=== PATIENT | female | born 1955 | race African-American/Black ===

== ENCOUNTER → 2018-08-20 | Outpatient (CLI) | payer MEDICARE, BC | LOC: MHCPAIN 12:55 | DX: G89.29 Other chronic pain (principal); M47.817 Spondylosis without myelopathy or radiculopathy, lumbosacral region; M54.16 Radiculopathy, lumbar region; M53.3 Sacrococcygeal disorders, not elsewhere classified; M96.1 Postlaminectomy syndrome, not elsewhere classified | CPT/HCPCS: G0463 ==

== ENCOUNTER → 2018-09-15 | Outpatient (CLI) | payer MEDICARE, BC | LOC: MHCPAIN 11:36 | DX: M47.817 Spondylosis without myelopathy or radiculopathy, lumbosacral region (principal); M54.16 Radiculopathy, lumbar region | CPT/HCPCS: J1100; Q9967 ==

== ENCOUNTER → 2018-09-30 | Outpatient (CLI) | payer MEDICARE, BC | LOC: MHCPAIN 10:24 | DX: G89.29 Other chronic pain (principal); M47.817 Spondylosis without myelopathy or radiculopathy, lumbosacral region; M54.16 Radiculopathy, lumbar region; M53.3 Sacrococcygeal disorders, not elsewhere classified; M96.1 Postlaminectomy syndrome, not elsewhere classified | CPT/HCPCS: G0463 ==

== ENCOUNTER → 2018-10-02 | Outpatient (CLI) | payer MEDICARE, BC | LOC: MHCPAIN 10:43 | DX: M47.817 Spondylosis without myelopathy or radiculopathy, lumbosacral region (principal); M54.16 Radiculopathy, lumbar region | CPT/HCPCS: J1100; Q9967 ==

== ENCOUNTER → 2018-11-04 | Outpatient (CLI) | payer MEDICARE, BC | LOC: MHCPAIN 13:22 | DX: G89.29 Other chronic pain (principal); M47.817 Spondylosis without myelopathy or radiculopathy, lumbosacral region; M54.16 Radiculopathy, lumbar region; M53.3 Sacrococcygeal disorders, not elsewhere classified | CPT/HCPCS: G0463 ==

== ENCOUNTER → 2020-03-22 | Outpatient (CLI) | payer MEDICARE, BC | LOC: MHCPAIN 09:10 | DX: M47.817 Spondylosis without myelopathy or radiculopathy, lumbosacral region (principal); M54.5 Low back pain; M96.1 Postlaminectomy syndrome, not elsewhere classified; G89.29 Other chronic pain; M54.16 Radiculopathy, lumbar region; M53.3 Sacrococcygeal disorders, not elsewhere classified | CPT/HCPCS: G0463 ==

== ENCOUNTER → 2020-03-31 | Outpatient (CLI) | payer MEDICARE, BC | LOC: MHCPAIN 08:59 | DX: M47.817 Spondylosis without myelopathy or radiculopathy, lumbosacral region (principal); M54.16 Radiculopathy, lumbar region; M53.3 Sacrococcygeal disorders, not elsewhere classified | CPT/HCPCS: J1100; Q9967 ==

== ENCOUNTER → 2020-04-19 | Outpatient (CLI) | payer MEDICARE, BC | LOC: MHCPAIN 09:53 | DX: M47.817 Spondylosis without myelopathy or radiculopathy, lumbosacral region (principal); M54.5 Low back pain; M53.3 Sacrococcygeal disorders, not elsewhere classified; M96.1 Postlaminectomy syndrome, not elsewhere classified | CPT/HCPCS: G0463 ==

== ENCOUNTER → 2020-04-28 | Outpatient (CLI) | payer MEDICARE, BC | LOC: MHCPAIN 08:49 | DX: M47.817 Spondylosis without myelopathy or radiculopathy, lumbosacral region (principal); M54.16 Radiculopathy, lumbar region | CPT/HCPCS: J1100; Q9967 ==

== ENCOUNTER → 2021-11-16 | Outpatient (CLI) | payer MEDICARE, BC ==
[~2021-11-16] VITALS: Ht 152.4 cm; Wt 78.9 kg
[2021-11-16] VITALS (9 sets, daily range): BP systolic 146–167; BP diastolic 67–92; PULSE 58–67; TEMP 97.4
[~2021-11-16] MED LIST: AIMOVIG AU70 MG/1 ML SQ; AMERGE 2.5MG T2.5 MG PO; ASPIRIN 81M81 MG/TA2 PO; ASTEPRO205.5 MCG/ NS; ATACAND4 MG PO; BUSPIRONE HCL7.5 MG PO; CRESTOR5 MG PO; DILAUDID 2MG TAB2 MG PO; EPIPEN 2-PAK1 MG/ML IM; FLEXERIL 1010 MG/TAB PO; GARLIC PO; GLUCOPHAGE500 MG/TAB PO; MIDAMOR 5MG TAB5 MG PO; NEURONTIN300 MG/CAP PO; NUCYNTA ER150 MG PO; OMEGA-31 SGL PO; SINGULAIR 110 MG/TAB PO; ZERVIATE1 EACH; ZYRTEC 10MG10 MG PO
--- NOTE | 2021-11-16 10:17 | NUR ---
Pt to ct per wheelchair. Monitor applied to pt. Denies complaints.
--- NOTE | 2021-11-16 10:38 | NUR ---
Specimen obtained by Dr Noriega and placed in formalin. Specimen labeled.
== END ==
LOC: COL.RAD 09:30
DX: M89.58 Osteolysis, other site (principal); Z85.3 Personal history of malignant neoplasm of breast
CPT/HCPCS: J2250; J3010

== ENCOUNTER 2022-02-18 17:49 | Inpatient (IN) | payer MEDICARE, BC ==
[~2022-02-18] VITALS: Ht 152.4 cm; Wt 78.0 kg
--- NOTE | 2022-02-18 19:00 | NUR ---
PT ARRIVED FROM [facility]. VICKIE WRIGHT RECEIVED THE PATIENT AND GOT HER SETTLED IN THE ROOM.
[2022-02-18 19:29] VITALS: BP 122/62; PULSE 95; TEMP 99
[2022-02-18] MEDS ORDERED: GLUCOPHAGE500 MG/TAB PO (21:11)
[2022-02-18] MEDS ORDERED: ASTELIN NASAL S34 ML NS (21:26)
[2022-02-18] MEDS ORDERED: KISQALI PO (21:29)
--- NOTE | 2022-02-18 21:30 | NUR ---
AFTER PATIENT MED RECONCILLIATION THE PATIENT BEGAN TO VOMIT; THE VOMIT WAS DARK GREENISH BROWN AND SMELLED OF BOWEL. CONTACTED THE PROVIDER COMPOUNDING AND FINISHING SUPERVISOR, ROSALINDA DUBOSE, WHO ORDERED AN NG PLACEMENT. 12F CHANTEL SUMP PLACED AT 52CM. THE PLACEMENT HERE WAS SMOOTH, IT APPEARS THAT THE PLACEMENT FROM [facility] WAS TRAUMATIC THE PATIENT DID VOMIT A HALF DOLLAR SIZED BLOOD CLOT. THE PATIENT'S NOSE DID DRIP SOME BLOOD, BUT STOPPED IMMEDIATELY. NG TUBE IS SET TO LOW SUCTION AFTER 500ML WAS DRAINED IMMEDIATELY FROM THE STOMACH. NO OTHER CONCERNS AT THIS TIME. WILL CONTINUE TO MONITOR.
[2022-02-18 23:49] VITALS: BP 130/67; PULSE 92; TEMP 99
--- NOTE | 2022-02-19 02:30 | NUR ---
Pt sleeping lying on her Right side. Pain assessment completed. Pt requested a warm blanket. Pt denies any pain at this moment. NG tube in place at Moderate Intermitent Suction. Right Forearm peripheral line in place. Fluids infusing. Call light within reach.
--- NOTE | 2022-02-19 02:44 | NUR ---
Pt sleeping lying on her left side. Pain assessment completed. Pt denies any pain at the moment. She requested a warm blanket. Call light within reach.
[2022-02-19 05:29] VITALS: BP 123/55; PULSE 103; TEMP 99.4
--- NOTE | 2022-02-19 05:35 | NUR ---
Pt up requested to use the commode and then got repositioned in bed. Remains NPO. This AIR BRAKES INSPECTOR notified to kiln charger nurse about pt stating feeling nauseous. Fall precautions remain in place. Call light within reach.
[2022-02-19 08:09] VITALS: BP 120/59; PULSE 99; TEMP 98.8
--- NOTE | 2022-02-19 08:38 | NUR ---
PT RESTING IN BED AFTER WORKING WITH THERAPY AT BEDSIDE. DAUGHTER ALSO AT BEDSIDE.
--- NOTE | 2022-02-19 08:59 | NUR ---
Patient taking chemotherapy agent: ribociclib/Kisqali. Staff to follow chemo precautions when handling patient urine and feces for 12 days following last dose. Med rec states last dose 02/17 so precautions ongoing until 03/02 if held. If medication restarted, precautions to be ongoing. Notified care team and placed sign outside patient room.
[2022-02-19 09:32] LABS: HEMOGLOBIN 10.6 g/dl (12.5-16.0); MEAN CELL VOLUME 87 fl (80.0-100.0); MEAN CORPUSCULAR HEMOGLOBIN 30 pg (27-31); MEAN CORPUSCULAR HGB CONC 34 g/dl (33.0-37.0); MEAN PLATELET VOLUME 10.1 fl (7.4-10.4); PLATELET COUNT 292 K/mm3 (130-400); RED BLOOD COUNT 3.57 M/mm3 (4.10-5.30); REDCELL DISTRIBUTION WIDTH-CV 18.9 % (11.5-14.5)
[2022-02-19 09:40] LABS: HEMATOCRIT 31.2 % (37.0-47.0)
[2022-02-19 09:48] LABS: CALCIUM 9.2 mg/dL (8.4-10.2); CREATININE, serum 1.15 mg/dL (0.57-1.11); MAGNESIUM 2.1 mg/dL (1.6-2.6); POTASSIUM 3.1 mmol/L (3.5-4.5)
[2022-02-19 10:30] LABS: BAND 8 % (0-10); LYMPHOCYTE 15 % (20.0-51.0); NEUTROPHILS 75 % (42.0-75.2)
[2022-02-19 10:31] LABS: OVALOCYTES 1+
[2022-02-19 10:32] LABS: BURR CELLS 1+; POIKILOCYTOSIS 1+
[2022-02-19 11:25] VITALS: BP 134/69; PULSE 89; TEMP 99.9
--- NOTE | 2022-02-19 12:12 | NUR ---
Marisela: Restorationism Situation: website optimization strategist went by room on rounds Background: Pt was resting and content Assessment: Pt has no needs right now Recommendation: Lan/Wan Engineer will follow up as needed
--- NOTE | 2022-02-19 13:41 | NUR ---
Motion Picture Projectionist met with patient and patient's family to discuss discharge planning. Patient's daughter, Suzie (ph#[phone]) is at bedside and other daughter, Christal is on speakerphone. Patient has her eyes closed during intake, but does make some remarks. Patient lives alone in [place] and sees Steff Carpio APRN for primary care. Patient obtains medications from [email or web address] and Suzie advised that sometimes patient has trouble affording medications, however has secured some coupons to assist with this. Patient uses a cane and walker for ambulation and is normally very independent with ADLS. Suzie described her mother as a "busy body". Suzie believes patient has DPOA-HC, so she is going to work on tracking down a copy. SW reviewed OT recommendation of home vs post acute rehab. SW reviewed options including IPR, local SNF's, and Home Health. When SW mentioned [facility] in [place], patient stated "no". Patient's daughters will discuss options with patient. Discharge Planning: Home with HH vs Post acute rehab
[2022-02-19 16:00] VITALS: BP 139/80; PULSE 90; TEMP 98.1
--- NOTE | 2022-02-19 19:14 | NUR ---
PT REPORTS ABD PAIN, MEDICATED WITH MORPHINE 2MG IVP. ASSISTED TO BSC WITH ONE ASSIST, FAMILY AT BEDSIDE HELP ALSO WITH TRANSFER. PT VOIDS AND BACK TO BED. IV SITE TO RAC, IVF INFUSING WITHOUT PROBLEM. NGT TO LIS, HAS MINIMAL GREENISH DRAINAGE.
[2022-02-19 20:56] VITALS: BP 151/74; PULSE 82; TEMP 99
[2022-02-19 23:43] VITALS: BP 145/72; PULSE 87; TEMP 98.6
[2022-02-20] VITALS (177 sets, daily range): BP systolic 91–147; BP diastolic 41–66; PULSE 91–118; TEMP 98.4–103.3; O2SAT 91–100
--- NOTE | 2022-02-20 01:13 | NUR ---
PT ASSISTED TO BSC WITH ONE ASSIST, VOIDS AND BACK TO BED. PT REPORTS PAIN TO ABD AND POSITIVE GAG REFLEX WITH ACTIVITY, SPITTING UP PHLEGM. MEDICATED WITH MORPHINE 2MG IVP AND ZOFRAN 4MG IVP AT THIS TIME. NGT PATENT, PLACEMENT CONFIRMED WITH AIR BOLUS.
--- NOTE | 2022-02-20 05:22 | NUR ---
MEDICATED WITH MORPHINE 2MG IVP AND ZOFRAN 4MG IVP FOR ABD PAIN. WAS UP TO BSC VOIDS AND BACK TO BED WITH ASSIST OF 1.
--- NOTE | 2022-02-20 06:45 | NUR ---
appears to be sleeping, in bed with lights off, eyes closed, resp quiet and easy, NG to LIS, bedside shift report received from VICKIE Stafford
--- NOTE | 2022-02-20 07:35 | NUR ---
called and c/o pain to abdomen, medicated with morphine 2mg slow IV, states pain is mostly on the left, bowel sounds audible on right 2 quads but hypoactive and faint on left 2 quads, full assessment completed, see interventions for further info, minimal out of NG to LIS
--- NOTE | 2022-02-20 08:14 | NUR ---
Temp 101.8, blankets removed and will monitor
--- NOTE | 2022-02-20 09:20 | NUR ---
physical therapy in to work with patient, ambulated to bathroom door and then around bed and to recliner, has a unsteady gait and is weak, c/o some dizziness while up
--- NOTE | 2022-02-20 10:25 | NUR ---
remains up in chair and dozes at intervls, daughter at bedside
--- NOTE | 2022-02-20 11:04 | NUR ---
assisted up to bathroom, moves slow and needs to be instructed on where to go but does follow commands, Dr Rodríguez and care team in to see patient, back to bed after going to bathroom
--- NOTE | 2022-02-20 12:40 | NUR ---
in bed and appears to be sleeping, eyes closed, resp quiet and easy, daughter remains at bedside
--- NOTE | 2022-02-20 13:08 | NUR ---
Dr Good in to see patient
--- NOTE | 2022-02-20 14:15 | NUR ---
ENGINEERING TECHNICAL SPECIALIST in and assisting her with a bad bed, c/o pain and medicated with morphine 2mg slow IV, dulcolax supp given as ordered, denies other needs and daughter remains at bedside
--- NOTE | 2022-02-20 14:20 | NUR ---
quality worker met with patient's daughter Suzie at bedside. Patient sleeping at the time of interaction. Suzie states that her and her sister talked with their mother last night and the patient would like to return home with . Patient had been established with [facility] in the past and would like to establish with them again.
--- NOTE | 2022-02-20 14:51 | NUR ---
appears to be sleeping, lying on left side with eyes closed, resp quiet and easy
[2022-02-20] MEDS ORDERED: ZESTRIL40 MG PO (15:26)
--- NOTE | 2022-02-20 15:40 | NUR ---
JASE informed this nurse patient's heart rate is elevated and she did not respond to her, entered room and she arouses but when asked her date of she cannot give it, is not able to say where she is, pupils are equal and respond, is unable to hold arms straight and does not hold legs when asked, Dr Rodríguez notified to come and see patient
--- NOTE | 2022-02-20 15:45 | NUR ---
Dr Rodríguez in to see patient, continues to not respond appropriately, opens eyes when name is called and tries to talk with daughter, orders placed
--- NOTE | 2022-02-20 16:00 | NUR ---
to radiology per cart for CT of head
--- NOTE | 2022-02-20 16:14 | NUR ---
returned from CT scan, remains unable to answer birthday and where she is, but alert
--- NOTE | 2022-02-20 17:33 | NUR ---
she remains unable to respond to questions appropraitely, Dr Ochoa in to see her and is talking with the daughter who remains at bedside
--- NOTE | 2022-02-20 18:08 | NUR ---
was up to bathroom and voided 2-3 times throughout the day
--- NOTE | 2022-02-20 18:52 | NUR ---
bedside shift report given to VICKIE Gibbs, patient does open her eyes but only briefly during report, ROSALINDA Macdonald notified and order for ABG received
[2022-02-20 19:10] LABS: ARTERIAL BLD GAS O2 SATURATION 90.3 % (92-100); ARTERIAL BLD GAS TCO2 CT 18.8; ARTERIAL BLOOD GAS BASE EXCESS -2.4 (-2-2); ARTERIAL BLOOD GAS HCO3 18.1 meq/L (22-26); ARTERIAL BLOOD GAS PO2 50.7 mmHg (80-100); ARTERIAL BLOOD GAS pH 7.58 (7.35-7.45)
[2022-02-20 19:12] LABS: ARTERIAL BLOOD GAS PCO2 19.8 mmHg (35-45)
[2022-02-20 19:17] LABS: COLLECTION METHOD CATHETER
[2022-02-20 19:27] LABS: URINE APPEARANCE Turbid (CLEAR/HAZY); URINE COLOR Yellow (YELLOW); URINE GLUCOSE TRACE (NEGATIVE); URINE KETONE Negative (NEGATIVE); URINE PROTEIN(semi-quant) 2+ (NEGATIVE); URINE UROBILINOGEN 0.2 E.U/dL (0.2-1.0)
[2022-02-20 19:28] LABS: URINE BLOOD 2+ (NEGATIVE); URINE NITRATE Negative (NEGATIVE)
[2022-02-20 19:31] LABS: MUCOUS Present (NOT PRESENT); SQUAMOUS EPITHELIAL 0-2 /hpf (0-10); URINE BACTERIA Rare /hpf (NONE SEEN)
--- NOTE | 2022-02-20 21:21 | NUR ---
UPON SHIFT CHANGE PT ALERT AND RESPONSIVE TO VOICE, BUT CANNOT FOLLOW COMMANDS OR ANSWER ORIENTATION QUESTIONS. VITALS ASSESSED AND PT FOUND TO BE FEBRILE AT 103.3 F. RECTAL TYLENOL ADMINISTERED PER VERBAL ORDER BY SEDRICK TELLEZ. ICE BAGS APPLIED. INDWELLING GONSALES INSERTED AT THIS TIME WELL- URINE SPECIMEN COLLECTED AND SENT TO LAB. PT FAMILY PRESENT AT BEDSIDE. TEMPERATURE TRENDING DOWN AT 100.5F. AROUND 1999 PT ALERT AND WISHING TO EXIT BED, PT SAT ON BEDPAN IN BED AND ATTEMPTED BM, HOWEVER NO BM OCCURED. PT BECAME MORE LETHARGIC AND UNRESPONSIVE- BP HYPOTENSIVE (SBP 70'S, DBP 30'S). TEMPERATURE BACK IN 103 F RANGE. FLUID BOLUS INITIATED AND GEOLOGICAL ENGINEER CALLED FOR ASSESSMENT ALONG WITH ROSALINDA. PT MINIMALLY RESPONSIVE UPON PHYSICAL STIMULATION. ULTIMATELY DETERMINED PT REQUIRED HIGHER LEVEL OF CARE WITH DISCUSSION BETWEEN PROVIDERS, GEOLOGICAL ENGINEER AND SERVICE DELIVERY SUPERVISOR. PT TRANSFERED ON 5L O2, GONSALES IN PLACE AROUND 1899 TO ICU. REPORT GIVEN TO DOC RN AT BEDSIDE.
[2022-02-20 22:33] LABS: MEAN CELL VOLUME 88 fl (80.0-100.0); MEAN CORPUSCULAR HGB CONC 34 g/dl (33.0-37.0); MEAN PLATELET VOLUME 10.6 fl (7.4-10.4); RED BLOOD COUNT 2.99 M/mm3 (4.10-5.30); REDCELL DISTRIBUTION WIDTH-CV 19.2 % (11.5-14.5)
[2022-02-20 22:36] LABS: HEMATOCRIT 26.4 % (37.0-47.0); HEMOGLOBIN 8.9 g/dl (12.5-16.0); MEAN CORPUSCULAR HEMOGLOBIN 30 pg (27-31); PLATELET COUNT 150 K/mm3 (130-400)
[2022-02-20 22:46] LABS: CALCIUM 8.3 mg/dL (8.4-10.2); CREATININE, serum 1.93 mg/dL (0.57-1.11); MAGNESIUM 1.6 mg/dL (1.6-2.6)
[2022-02-20 22:58] LABS: POTASSIUM 2.3 mmol/L (3.5-4.5)
[2022-02-20 23:33] LABS: BAND 32 % (0-10); EOSINOPHIL 1 % (0-4); LYMPHOCYTE 14 % (20.0-51.0); METAMYELOCYTE 2 % (0-0); MYELOCYTE 2 % (0-0); NEUTROPHILS 46 % (42.0-75.2); NUCLEATED RED BLOOD CELL 3 (0-6)
[2022-02-20 23:34] LABS: ANISOCYTOSIS 2+; BURR CELLS 2+; PLATELET ESTIMATE NORMAL (NORMAL)
[2022-02-20 23:35] LABS: SCHISTOCYTES 1+
[2022-02-20 23:39] LABS: OVALOCYTES 2+; POIKILOCYTOSIS 2+
[2022-02-21] VITALS (954 sets, daily range): BP systolic 106–132; BP diastolic 56–79; PULSE 85–105; TEMP 98.7–99.9; O2SAT 63–100
--- NOTE | 2022-02-21 00:13 | NUR ---
02/20/222099 - TRANSFER FROM MEDICAL ASSESSMENT
[2022-02-21 05:40] LABS: MEAN CELL VOLUME 89 fl (80.0-100.0); MEAN CORPUSCULAR HGB CONC 33 g/dl (33.0-37.0); MEAN PLATELET VOLUME 10.6 fl (7.4-10.4); PLATELET COUNT 131 K/mm3 (130-400); RED BLOOD COUNT 2.82 M/mm3 (4.10-5.30); REDCELL DISTRIBUTION WIDTH-CV 19.4 % (11.5-14.5)
[2022-02-21 05:46] LABS: HEMOGLOBIN 8.3 g/dl (12.5-16.0); MEAN CORPUSCULAR HEMOGLOBIN 29 pg (27-31)
[2022-02-21 06:03] LABS: ALBUMIN 2.5 gm/dL (3.4-4.8); BILIRUBIN,TOTAL 1.1 mg/dL (0.2-1.2); CREATININE, serum 2.02 mg/dL (0.57-1.11); MAGNESIUM 2.4 mg/dL (1.6-2.6); PHOSPHOROUS 1.3 mg/dL (2.3-4.7)
[2022-02-21 06:12] LABS: POTASSIUM 2.7 mmol/L (3.5-4.5)
[2022-02-21 07:07] LABS: BAND 23 % (0-10); LYMPHOCYTE 11 % (20.0-51.0); METAMYELOCYTE 2 % (0-0); MYELOCYTE 1 % (0-0); NEUTROPHILS 62 % (42.0-75.2)
[2022-02-21 07:08] LABS: ANISOCYTOSIS 1+; OVALOCYTES 2+; PLATELET ESTIMATE DECREASED (NORMAL)
[2022-02-21 07:10] LABS: BURR CELLS 1+
--- NOTE | 2022-02-21 07:25 | NUR ---
REPORT RECEIVED FROM VICKIE TA; PATIENT CURRENTLY RESTING IN BED WITH FLUIDS AND POTASSIUM RUNNING INTO HER LEFT IJ AND NOTHING THROUGH HER PERIPHERAL LINE. VITAL SIGNS ARE WITHIN NORMAL LIMITS THIS MORNING WITH HR BEING SLIGHTLY HIGH AND RUNNING IN THE MID 90S. PATIENT IS ON 5L OXYGEN VIA OXYMASK.
[2022-02-21 16:25] LABS: CREATININE, serum 1.62 mg/dL (0.57-1.11)
[2022-02-21 16:26] LABS: FRACTIONAL EXCRETION OF NA+ 0.5 %
--- NOTE | 2022-02-21 16:33 | NUR ---
Talked with Suzie , daughter [phone], about visiting policy and being the spoke sperson.
[2022-02-22] VITALS (594 sets, daily range): BP systolic 120–142; BP diastolic 74–89; PULSE 93–105; TEMP 97.7–98.8; O2SAT 73–100
[2022-02-22 05:09] LABS: MEAN CELL VOLUME 90 fl (80.0-100.0); MEAN CORPUSCULAR HGB CONC 32 g/dl (33.0-37.0); MEAN PLATELET VOLUME 10.5 fl (7.4-10.4); PLATELET COUNT 97 K/mm3 (130-400); RED BLOOD COUNT 3.22 M/mm3 (4.10-5.30); REDCELL DISTRIBUTION WIDTH-CV 20.2 % (11.5-14.5)
[2022-02-22 05:17] LABS: HEMOGLOBIN 9.4 g/dl (12.5-16.0); MEAN CORPUSCULAR HEMOGLOBIN 29 pg (27-31)
[2022-02-22 05:29] LABS: ALBUMIN 2.3 gm/dL (3.4-4.8); CALCIUM 7.3 mg/dL (8.4-10.2); CREATININE, serum 1.29 mg/dL (0.57-1.11); MAGNESIUM 2.1 mg/dL (1.6-2.6); PHOSPHOROUS 1.6 mg/dL (2.3-4.7); POTASSIUM 3.1 mmol/L (3.5-4.5)
[2022-02-22 05:47] LABS: ANISOCYTOSIS 2+; BAND 17 % (0-10); BURR CELLS 2+; HYPOCHROMIA 1+; LYMPHOCYTE 4 % (20.0-51.0); METAMYELOCYTE 2 % (0-0); NEUTROPHILS 74 % (42.0-75.2); PLATELET ESTIMATE DECREASED (NORMAL)
[2022-02-22 05:48] LABS: OVALOCYTES 1+; SCHISTOCYTES 1+
--- NOTE | 2022-02-22 18:51 | NUR ---
PT HAD AN UNEVENTFUL DAY, VSS, A&OX4, REMAINES AFEBRILE. PT WAS ABLE TO GET TO THE RECLINER TODAY WHRE SHE SPENT APPROX. 4 HOURS BEFORE REQUESTING PAIN MEDICATION FOR HER SHOULDER AND WANTING TO TAKE A NAP. PER DR TREVINO, PT HAS NOT HAD ANY OUTPUT IN HER NG TUBE FOR 48 HRS AND IS SAFE TO REMOVE. PT NG TUBE REMOVED WITHOUT INCIDENT, PT HAD SOME SLIGHT BLEEDING FROM THE MOUTH, ASSUMING FROM THE BACK OF THE NARES, THAT RESOLVED ON ITS OWN WITHIN A FEW MINUTES WITH APPROX 2 CC BLOOD LOSS. FAMILY IS BEDSIDE AND COMMUNICATES PT NEEDS REGULARLY. SEE PHYSICIAN NOTES.
--- NOTE | 2022-02-22 19:45 | NUR ---
PROVIDED PATIENT WITH PRN MORPHINE FOR ABD PAINS. PATIENT ALERT AND ORIENTATED WITH FAMILY AT BEDSIDE. DENIES NEEDS AT THIS TIME. CALL LIGHT IN REACH.
--- NOTE | 2022-02-22 22:18 | NUR ---
PATIENT UP TO ROOM 345, VIA WHEELCHAIR. STANDBY TRANSFER TO BED. ALERT AND ORIENTED BUT SLOW RESPONSES. SEE SHIFT ASSESSMENT. 3L O2 VIA NC STARTED. GONSALES TO DD, WITH CLEAR YELLOW OUTPUT. RIJ TRIPLE LUMEN PATENT WITH GOOD BLOOD RETURN. C/O MODERATE ABD PAIN AND PRN MORPHINE GIVEN. CALL LIGHT IN REACH. DENIES ADDITIONAL NEEDS.
--- NOTE | 2022-02-22 23:00 | NUR ---
REPORT CALLED TO BARBIE AT 2139. PATIENT LEFT UNIT AT 2151.
[2022-02-23] VITALS (7 sets, daily range): BP systolic 131–151; BP diastolic 61–98; PULSE 87–100; TEMP 97.5–98.4
[2022-02-23 06:14] LABS: MEAN CELL VOLUME 88 fl (80.0-100.0); MEAN CORPUSCULAR HGB CONC 34 g/dl (33.0-37.0); MEAN PLATELET VOLUME 11.8 fl (7.4-10.4); PLATELET COUNT 95 K/mm3 (130-400); RED BLOOD COUNT 3.22 M/mm3 (4.10-5.30); REDCELL DISTRIBUTION WIDTH-CV 19.7 % (11.5-14.5)
[2022-02-23 06:28] LABS: HEMATOCRIT 28.2 % (37.0-47.0); HEMOGLOBIN 9.6 g/dl (12.5-16.0); MEAN CORPUSCULAR HEMOGLOBIN 30 pg (27-31)
[2022-02-23 06:34] LABS: ALBUMIN 2.6 gm/dL (3.4-4.8); CREATININE, serum 1.1 mg/dL (0.57-1.11); MAGNESIUM 2.1 mg/dL (1.6-2.6); PHOSPHOROUS 1.4 mg/dL (2.3-4.7); POTASSIUM 3.4 mmol/L (3.5-4.5)
[2022-02-23 06:52] LABS: ANISOCYTOSIS 1+; BAND 3 % (0-10); LYMPHOCYTE 20 % (20.0-51.0); NEUTROPHILS 69 % (42.0-75.2); PLATELET ESTIMATE DECREASED (NORMAL)
[2022-02-23] MEDS ORDERED: ZOFRAN ODT4 MG PO (09:02)
[2022-02-23] MEDS ORDERED: ROXICODONE 55 MG/TAB PO (09:02)
[2022-02-23] MEDS ORDERED: BLUE-EMU LIDOC1 EACH TP (09:10)
[2022-02-23] MEDS ORDERED: TYLENOL 325MG325 MG PO ×2 (09:10)
--- NOTE | 2022-02-23 15:22 | NUR ---
PT ALERT AND ORIENTED X 4, WITH CENTRAL LINE TRIPLE LUMEN WITH GOOD BLOOD RETURN, GONSALES CATHETER REMOVED AT 1000 AND WAS ABLE TO PEE THEREAFTER, FAMILY AT BEDSIDE, COMPLAINED OF ABDOMINAL PAIN OXYCODONE GIVEN, PT SAID THE OXYCODONE DIDN'T WORK FOR HER, CALLED [facility] REGARDING PT'S CONCERN AND GOT AN ORDER FOR DILAUDID, WITH LIDOCAINE PATCH ON HER RIGHT SHOULDER, DENIES SOB, LUNGS CTA, NO FURTHER NEEDS OR CONCERNS AT THIS TIME, WILL CONTINUE TO MONITOR.
--- NOTE | 2022-02-23 16:16 | NUR ---
hot worker notified by patient's RN that the family would like to start looking at SNF options. Upon entering the room, patient's sister, daughter, grandson present at bedside. Patient's other daughter on via phone. SW educated the family on the different options they have in terms of facilities. Patient verbalizes that she does not want to go to [place] in . Agreement made for JUAN JOSÉ to send referrals to [facility]. Discharge plan: SNF referrals pending
--- NOTE | 2022-02-23 18:40 | NUR ---
Called Anna Marie at 1840 for result regarding blood culture which is positive and gram negative.
[2022-02-24 04:15] VITALS: BP 163/81; PULSE 91; TEMP 98.2
--- NOTE | 2022-02-24 06:24 | NUR ---
PT on 3L O2 per NC, morphine and oxycodone given x2 this shift, able to sleep well, changed to IV antibiotic d/t positive blood cx, pt and daughter informed. TLRIJ patent/intact, am lab obtained without difficulty. up to restroom with assist of 1, no difficulty voiding since geller dc'd yesterday. BGM q6hrs, no SSI required. taking only small amts of bland foods, reports loose stools, fiona held @HS. A&O x4.
[2022-02-24 06:37] LABS: MEAN CELL VOLUME 90 fl (80.0-100.0); MEAN CORPUSCULAR HGB CONC 33 g/dl (33.0-37.0); MEAN PLATELET VOLUME 11.8 fl (7.4-10.4); PLATELET COUNT 103 K/mm3 (130-400); RED BLOOD COUNT 3.02 M/mm3 (4.10-5.30); REDCELL DISTRIBUTION WIDTH-CV 19.9 % (11.5-14.5)
[2022-02-24 06:55] LABS: ALBUMIN 2.6 gm/dL (3.4-4.8); CALCIUM 8.1 mg/dL (8.4-10.2); CREATININE, serum 0.98 mg/dL (0.57-1.11); MAGNESIUM 2.1 mg/dL (1.6-2.6); PHOSPHOROUS 1.5 mg/dL (2.3-4.7); POTASSIUM 3.7 mmol/L (3.5-4.5)
[2022-02-24 07:01] LABS: HEMATOCRIT 27.3 % (37.0-47.0); MEAN CORPUSCULAR HEMOGLOBIN 30 pg (27-31)
[2022-02-24 07:31] LABS: ANISOCYTOSIS 2+; BASOPHIL 1 % (0-2); LYMPHOCYTE 13 % (20.0-51.0); NEUTROPHILS 76 % (42.0-75.2); PLATELET ESTIMATE DECREASED (NORMAL)
[2022-02-24 07:32] LABS: OVALOCYTES 1+
[2022-02-24 07:43] VITALS: BP 138/78; PULSE 91; TEMP 98.2
--- NOTE | 2022-02-24 10:00 | NUR ---
Pt doing well this morning. She does use the call light when she needs to use the restroom. She is stand by assist and does well using a walker. Voiding without difficulty. Pt stated that she still has loose stool, but not as frequent. Potassium given per protocol. Pt does have family in the room at this time. They are aware that she will be going to [facility] when they accept and a time is set up.
[2022-02-24] MEDS ORDERED: CIPRO 500MG TA500 MG PO (10:18)
[2022-02-24] MEDS ORDERED: TYLENOL 325MG325 MG PO (10:18)
[2022-02-24] MEDS ORDERED: NUCYNTA ER150 MG PO (10:18)
[2022-02-24] MEDS ORDERED: DILAUDID 2MG TAB2 MG PO (10:18)
[2022-02-24] MEDS ORDERED: DULCOLAX S10 MG/SUPP RC (10:20)
[2022-02-24] MEDS ORDERED: COLACE 100100 MG/CAP PO (10:20)
[2022-02-24] MEDS ORDERED: MIRALAX PA17 GM/Dose PO (10:20)
--- NOTE | 2022-02-24 11:42 | NUR ---
SW informed that patient would be discharging on this day to [facility]. [facility] called to informed, documentation sent to [facility]. supervisor cartography time will be 1pm. Nothing further.
[2022-02-24 11:59] VITALS: BP 141/81; PULSE 83; TEMP 97.9
[2022-02-24] MEDS ORDERED: PHOSPHA 250 NEU1 TAB PO (13:08)
--- NOTE | 2022-02-24 13:08 | NUR ---
Pt has been accepted to [facility] and will be departing soon. Transportation has been set up by SS. right IJ removed, held pressure and then pressure dressing applied. Pt does have family in the room and they are aware that she will be leaving soon. Pt does have lunch, she is not wanting the hamburger, but stated that she will eat the carrots. No other needs, will continue to monitor
--- NOTE | 2022-02-24 13:39 | NUR ---
Pt has been transferred to [facility]. Reported called to Negro. All questions answered
== END 2022-02-24 13:39 | DRG 388 ==
LOC: MEDICAL 17:49 → ICU 18:46 → SURG 02-19 13:41 → ICU 02-20 21:09 → SURG 02-22 21:59
PROVIDERS: Internal Medicine; Registered Nurse; Student in an Organized Health Care Education/Training Program; ADMIT Internal Medicine
PROC: 02HV33Z Insertion of Infusion Device into Superior Vena Cava, Percutaneous Approach (ICD-10-PCS; principal; 2022-02-20)
DX: K56.609 Unspecified intestinal obstruction, unspecified as to partial versus complete obstruction (principal); G93.41 Metabolic encephalopathy; C79.81 Secondary malignant neoplasm of breast; C79.51 Secondary malignant neoplasm of bone; C79.89 Secondary malignant neoplasm of other specified sites; C79.49 Secondary malignant neoplasm of other parts of nervous system; N17.9 Acute kidney failure, unspecified; E87.0 Hyperosmolality and hypernatremia; E87.3 Alkalosis; R78.81 Bacteremia; M84.58XA Pathological fracture in neoplastic disease, other specified site, initial encounter for fracture; F41.9 Anxiety disorder, unspecified; F32.A Depression, unspecified; I95.9 Hypotension, unspecified; E87.6 Hypokalemia; I12.9 Hypertensive chronic kidney disease with stage 1 through stage 4 chronic kidney disease, or unspecified chronic kidney disease; E11.22 Type 2 diabetes mellitus with diabetic chronic kidney disease; N18.9 Chronic kidney disease, unspecified; D64.9 Anemia, unspecified; E83.39 Other disorders of phosphorus metabolism; Z20.822 Contact with and (suspected) exposure to COVID-19; M19.011 Primary osteoarthritis, right shoulder; B96.20 Unspecified Escherichia coli [E. coli] as the cause of diseases classified elsewhere; B96.89 Other specified bacterial agents as the cause of diseases classified elsewhere; G89.29 Other chronic pain; Z92.3 Personal history of irradiation; Z90.710 Acquired absence of both cervix and uterus; Z79.84 Long term (current) use of oral hypoglycemic drugs; Z79.82 Long term (current) use of aspirin; Z98.42 Cataract extraction status, left eye; Z98.41 Cataract extraction status, right eye; Z88.0 Allergy status to penicillin; Z88.8 Allergy status to other drugs, medicaments and biological substances; Z88.6 Allergy status to analgesic agent; Z91.030 Bee allergy status; Z91.040 Latex allergy status
CPT/HCPCS: C1751; J0692; J1650; J2270; J2405; J2550; J3370; J3475; J3480; J7042; J7050; J7120

== ENCOUNTER 2022-02-25 03:35 | Inpatient (IN) | payer MEDICARE, BC ==
[~2022-02-25] VITALS: Ht 152.4 cm; Wt 74.0 kg
[2022-02-25] VITALS (10 sets, daily range): BP systolic 132–149; BP diastolic 70–81; PULSE 91–103; TEMP 97.9–98.9
[~2022-02-25 03:35] MED LIST changes: +ASTELIN NASAL S34 ML NS; +BLUE-EMU LIDOC1 EACH TP; +CIPRO 500MG TA500 MG PO; +COLACE 100100 MG/CAP PO; +DULCOLAX S10 MG/SUPP RC; +KISQALI PO; +MIRALAX PA17 GM/Dose PO; +PHOSPHA 250 NEU1 TAB PO; +ROXICODONE 55 MG/TAB PO; +TYLENOL 325MG325 MG PO; +ZESTRIL40 MG PO; +ZOFRAN ODT4 MG PO
[2022-02-25 04:00] LABS: HEMOGLOBIN 10.4 g/dl (12.5-16.0); MEAN CELL VOLUME 87 fl (80.0-100.0); MEAN CORPUSCULAR HEMOGLOBIN 30 pg (27-31); MEAN CORPUSCULAR HGB CONC 34 g/dl (33.0-37.0); MEAN PLATELET VOLUME 11.2 fl (7.4-10.4); PLATELET COUNT 148 K/mm3 (130-400); RED BLOOD COUNT 3.53 M/mm3 (4.10-5.30); REDCELL DISTRIBUTION WIDTH-CV 19.8 % (11.5-14.5)
[2022-02-25 04:02] LABS: HEMATOCRIT 30.8 % (37.0-47.0)
[2022-02-25 04:18] LABS: ALBUMIN 3.1 gm/dL (3.4-4.8); BILIRUBIN,TOTAL 0.6 mg/dL (0.2-1.2); CREATININE, serum 1.13 mg/dL (0.57-1.11); POTASSIUM 3.9 mmol/L (3.5-4.5); TOTAL PROTEIN 7.3 gm/dL (6.2-8.1)
[2022-02-25 04:24] LABS: ANISOCYTOSIS 2+; BAND 12 % (0-10); LYMPHOCYTE 13 % (20.0-51.0); NEUTROPHILS 58 % (42.0-75.2); NUCLEATED RED BLOOD CELL 1 (0-6); PLATELET ESTIMATE NORMAL (NORMAL)
[2022-02-25 05:44] LABS: MAGNESIUM 2.1 mg/dL (1.6-2.6); PHOSPHOROUS 1.8 mg/dL (2.3-4.7)
[2022-02-25 07:39] LABS: COLLECTION METHOD CLEAN CATCH
[2022-02-25 07:55] LABS: MUCOUS Present (NOT PRESENT); SQUAMOUS EPITHELIAL 0-2 /hpf (0-10); URINE BACTERIA None Seen /hpf (NONE SEEN)
[2022-02-25 07:57] LABS: PH 6.5 (5-8); URINE APPEARANCE Clear (CLEAR/HAZY); URINE BLOOD Negative (NEGATIVE); URINE COLOR Yellow (YELLOW); URINE GLUCOSE Negative (NEGATIVE); URINE KETONE 2+ (NEGATIVE); URINE NITRATE Negative (NEGATIVE); URINE PROTEIN(semi-quant) 2+ (NEGATIVE); URINE UROBILINOGEN 0.2 (NEGATIVE)
--- NOTE | 2022-02-25 09:04 | NUR ---
Pt admitted from ED. She is alert and oriented although drowsy. She appears to be comfortable, but is rating her pain 9/10. She is independent moving around in her bed. IV fluids infusing to right wrist. Dr Abreu has been in to see pt, new orders wrote. Consent signed for surgery. Pt does have family at the bedside with her. SCDs on bilaterally
--- NOTE | 2022-02-25 09:25 | NUR ---
Pt off the floor for surgery
--- NOTE | 2022-02-25 10:57 | NUR ---
SW went to see pt for intake. pt was in surgery. Try back later.
--- NOTE | 2022-02-25 13:11 | NUR ---
Pt arrived back to the floor from [facility]. She is alert although drowsy. She does wake easily when spoken to. Abd dressing is CDI. Lowery to dependent drainage with clear pale yellow output. SCDs on bilaterally. Pt does have epidural in place. Fluids infusing to right wrist.
--- NOTE | 2022-02-25 15:26 | NUR ---
SW met with pt to complete intake who reported she would like to return to [facility] to build strength. Pt reports she lives at home alone, but is currently at [facility] SNF. Her NK is his daughter Christal @[phone]. Pt reports she was IADLs, before [facility] and only used a walker/cane. PCP is Steff Arenas and gets medications from [facility]. Pt reported she has a DPOA-HC agent appointed. No other needs at this time. SW await and follow up as needed. DC: return to [facility].
--- NOTE | 2022-02-25 15:46 | NUR ---
Pt continues to do well, resting now with eyes closed, even non labored breathing
--- NOTE | 2022-02-25 21:31 | NUR ---
PT FAMILY AT BEDSIDE DURING INITIAL ASSESSMENT. PT MILDLY LETHARGIC, EPIDURAL IN PLACE. ICE CHIPS PROVIDED AND NG TAPE INTACT. BED ALARM SET, PT ALERT AND ORIENTEDX4.
[2022-02-26] VITALS (8 sets, daily range): BP systolic 132–181; BP diastolic 69–86; PULSE 89–102; TEMP 97.7–99.2
--- NOTE | 2022-02-26 08:40 | NUR ---
CALLED ANESTHESIA DEPARTMENT AND ASKED IF IT'S OKAY TO GIVE LOVENOX ORDERED, GOT AN ORDER TO GIVE IT.
[2022-02-26 12:10] LABS: MEAN CELL VOLUME 90 fl (80.0-100.0); MEAN CORPUSCULAR HGB CONC 33 g/dl (33.0-37.0); MEAN PLATELET VOLUME 10.4 fl (7.4-10.4); PLATELET COUNT 180 K/mm3 (130-400); RED BLOOD COUNT 2.77 M/mm3 (4.10-5.30); REDCELL DISTRIBUTION WIDTH-CV 19.9 % (11.5-14.5)
[2022-02-26 12:14] LABS: HEMOGLOBIN 8.2 g/dl (12.5-16.0); MEAN CORPUSCULAR HEMOGLOBIN 30 pg (27-31)
[2022-02-26 12:24] LABS: CALCIUM 7.5 mg/dL (8.4-10.2); CREATININE, serum 0.84 mg/dL (0.57-1.11); POTASSIUM 3.4 mmol/L (3.5-4.5)
[2022-02-26 12:30] LABS: BAND 15 % (0-10); LYMPHOCYTE 5 % (20.0-51.0); NEUTROPHILS 69 % (42.0-75.2); OVALOCYTES 2+; PLATELET ESTIMATE NORMAL (NORMAL); SCHISTOCYTES 1+
[2022-02-26 12:31] LABS: ANISOCYTOSIS 2+
--- NOTE | 2022-02-26 13:42 | NUR ---
Clinical updates faxed to Ari at [facility]. At this time, the patient will return back to SNF once mediclaly ready. Per Ari, [facility] staff would like a goals of care discussion to be held. JUAN JOSÉ informed hospitalist who does not feel as if this is warrented.
--- NOTE | 2022-02-26 14:02 | NUR ---
Marisela: Temple Situation: Telescope Repairer went by room on rounds Background: PT was resting and content Assessment: PT asked for prayer, marketing regional consultant prayed with Pt they all appreciated the stop in Recommendation: Telescope Repairer will follow up as needed
--- NOTE | 2022-02-26 14:15 | NUR ---
VERIFIED WITH AIV ABLE TO RECHECK BP ON RIGHT WRIST.
--- NOTE | 2022-02-26 15:28 | NUR ---
Patient alert and orientedx4, remains on RA, still with NG to LIS with greenish drainage, with PICC line newly inserted by AIV this morning, with geller cather draining clear yellow urine, with epidural infusing well, talked to anesthesiologist Jean-Paul and readjust it accordingly, encouraged to get up and emphasize the importance of it but refused, potassium replacement given as ordered and as per protocol, sponge bath given, geller catheter care done and changed a new gone, maintained on NPO with ice chips, will continue to monitor.
--- NOTE | 2022-02-27 01:11 | NUR ---
SHIFT REPORT FROM KELSI JOHNSTON. PATIENT IN BED ON ROOM ENTRY. ALERT AND ORIENTED BUT DROWSY AND SLOW TO RESPOND. DENIES PAIN. HS MEDS PER EMAR. MIDLINE CDI WITH ABD DRESSING. GONSALES TO DD WITH CLEAR YELLOW OUTPUT. LINDA PICC WITH IVF INFUSING. EPIDURAL SITE CDI. PATIENT X2 ASSIST TO SIDE OF BED.
[2022-02-27 04:06] VITALS: BP 136/75; PULSE 92; TEMP 98
[2022-02-27 06:38] LABS: CALCIUM 7.5 mg/dL (8.4-10.2); CREATININE, serum 0.77 mg/dL (0.57-1.11); POTASSIUM 3.3 mmol/L (3.5-4.5)
[2022-02-27 07:08] LABS: MEAN CELL VOLUME 91 fl (80.0-100.0); MEAN CORPUSCULAR HGB CONC 33 g/dl (33.0-37.0); MEAN PLATELET VOLUME 10.5 fl (7.4-10.4); PLATELET COUNT 198 K/mm3 (130-400); RED BLOOD COUNT 2.67 M/mm3 (4.10-5.30); REDCELL DISTRIBUTION WIDTH-CV 19.8 % (11.5-14.5)
[2022-02-27 07:11] LABS: HEMATOCRIT 24.2 % (37.0-47.0); MEAN CORPUSCULAR HEMOGLOBIN 30 pg (27-31)
[2022-02-27 07:16] VITALS: BP 148/86; PULSE 95; TEMP 98.3
[2022-02-27 09:00] LABS: ANISOCYTOSIS 2+; BAND 6 % (0-10); LYMPHOCYTE 13 % (20.0-51.0); METAMYELOCYTE 2 % (0-0); NEUTROPHILS 75 % (42.0-75.2); OVALOCYTES 1+; PLATELET ESTIMATE NORMAL (NORMAL)
--- NOTE | 2022-02-27 10:32 | NUR ---
GOT A CALL FROM DR. ROJAS AT [phone] AND HE ORDERED TO CLAMP THE NG TUBE AND START ON CLEAR LIQUID.
[2022-02-27 11:52] VITALS: BP 132/71; PULSE 97; TEMP 98.9
[2022-02-27 15:19] LABS: HEMATOCRIT 23.4 % (37.0-47.0); HEMOGLOBIN 7.8 g/dl (12.5-16.0)
[2022-02-27 15:44] VITALS: BP 137/84; PULSE 106; TEMP 99.8
--- NOTE | 2022-02-27 18:05 | NUR ---
Patient alert and orientedx4, still with PICC line on right upper arm CDI, with epidural infusing well, still with geller catheter draining well, with abdominal dressing CDI, was able to work with PT,removed NG tube as ordered by Dr. Abreu, updated daughter Suzie, questions and concerns addressed, assisted patient in ordering her food to the kitchen, patient verbalized pain is better than it was, will continue to monitor.
--- NOTE | 2022-02-27 19:57 | NUR ---
PT A&OX 4 RESTING IN BED. ASSESSMENT COMPLETE. PT RATES ABD PN A 01/07. MIDLINE INCISION W GLYNN OPEN TO AIR IS CDI. PT REPORTS FLATULUS. VS STABLE AND TELE IN PLACE. GONSALES W PALE YELLOW OUTPUT. EPIDURAL DRESSING CDI. D5 1/2NS RUNNING AT 100ML/HR AND CIPRO AT 100ML/HR WELL. PICC TO LINDA. SCDS APPLIED TO BLE. BS 106. FALL PRECAUTIONS IN PLACE. NO NEEDS AT THIS TIME. CALL LIGHT WITHIN REACH.
[2022-02-27 20:00] VITALS: BP 135/85; PULSE 100; TEMP 98.9
[2022-02-28] VITALS: BP 151/80; PULSE 95; TEMP 98.3
[2022-02-28 04:00] VITALS: BP 153/88; PULSE 87; TEMP 98.8
[2022-02-28 07:00] LABS: MEAN CELL VOLUME 89 fl (80.0-100.0); MEAN CORPUSCULAR HGB CONC 33 g/dl (33.0-37.0); MEAN PLATELET VOLUME 10.5 fl (7.4-10.4); PLATELET COUNT 224 K/mm3 (130-400); RED BLOOD COUNT 2.79 M/mm3 (4.10-5.30); REDCELL DISTRIBUTION WIDTH-CV 19.4 % (11.5-14.5)
[2022-02-28 07:06] LABS: HEMATOCRIT 24.7 % (37.0-47.0); HEMOGLOBIN 8.2 g/dl (12.5-16.0); MEAN CORPUSCULAR HEMOGLOBIN 29 pg (27-31)
[2022-02-28 07:09] VITALS: BP 139/87; PULSE 91; TEMP 98.6
[2022-02-28 07:26] LABS: CALCIUM 7.7 mg/dL (8.4-10.2); CREATININE, serum 0.73 mg/dL (0.57-1.11); POTASSIUM 3.4 mmol/L (3.5-4.5)
[2022-02-28 08:00] VITALS: BP 125/69; PULSE 105; TEMP 97.7
[2022-02-28 08:27] LABS: ANISOCYTOSIS 2+; BAND 13 % (0-10); EOSINOPHIL 1 % (0-4); LYMPHOCYTE 7 % (20.0-51.0); METAMYELOCYTE 3 % (0-0); NEUTROPHILS 75 % (42.0-75.2); NUCLEATED RED BLOOD CELL 2 (0-6); PLATELET ESTIMATE NORMAL (NORMAL); SCHISTOCYTES 1+
[2022-02-28 08:28] LABS: OVALOCYTES 2+
[2022-02-28 11:19] VITALS: BP 132/79; PULSE 100; TEMP 98.9
--- NOTE | 2022-02-28 15:37 | NUR ---
Patient alert and oriented x4, remains on room air, with PICC line at right upper arm with 2 lumens with good blood return, with geller catheter draining well, epidural off at 12noon and will be taken out this afternoon at 1700, given morphine as ordered verbally by Dr. Abreu, worked with the PT as well and did good, updated patient's daughter, concerns and questions answered, call light and personal items within reach. Patient's sister also at bedside at this time.
[2022-02-28 15:52] VITALS: BP 127/75; PULSE 96; TEMP 98.9
--- NOTE | 2022-02-28 20:17 | NUR ---
PT A&OX4 RESTING ON THE SIDE OF HER BED. PT REPORTS PN IN HER BOTTOM AND AIR MATTRESS WAS APPLIED TO HER BED. PT REPORTS PN A 7/10 IN HER ABD. ASSESSMENT COMPLETE. INCISION CDI. ACCU CHECK 94 REQUIRING NO INSULIN. VS STABLE AND TELE IN PLACE. GONSALES DD W PALE URINE OUTPUT. PICC TO LINDA INT W GOOD BLOOD RETURN. SCDS TO BLE.
[2022-03-01 00:31] VITALS: BP 121/98; PULSE 91; TEMP 97.8
[2022-03-01 04:26] VITALS: BP 139/82; PULSE 92; TEMP 98.2
--- NOTE | 2022-03-01 07:00 | NUR ---
PT RESTING IN BED WATCHING TV. PT DENIES NEEDS AT THIS TIME. PT HAS CALL LIGHT WITHIN REACH AND INSTRUCTED TO CALL WTIH ALL NEEDS.
[2022-03-01] MEDS ORDERED: MIRALAX PA17 GM/Dose PO (07:59)
[2022-03-01 08:03] VITALS: BP 145/85; PULSE 95; TEMP 98.3
[2022-03-01] MEDS ORDERED: NOVLOG SQ (08:47)
[2022-03-01] MEDS ORDERED: NORCO 325 MG-51 TAB PO (08:48)
[2022-03-01 09:07] LABS: MEAN CELL VOLUME 88 fl (80.0-100.0); MEAN CORPUSCULAR HGB CONC 34 g/dl (33.0-37.0); MEAN PLATELET VOLUME 9.7 fl (7.4-10.4); PLATELET COUNT 266 K/mm3 (130-400); RED BLOOD COUNT 2.87 M/mm3 (4.10-5.30); REDCELL DISTRIBUTION WIDTH-CV 19.4 % (11.5-14.5)
[2022-03-01 09:22] LABS: CALCIUM 8.4 mg/dL (8.4-10.2); CREATININE, serum 0.83 mg/dL (0.57-1.11); POTASSIUM 3.6 mmol/L (3.5-4.5)
[2022-03-01 09:23] LABS: HEMATOCRIT 25.2 % (37.0-47.0); HEMOGLOBIN 8.5 g/dl (12.5-16.0); MEAN CORPUSCULAR HEMOGLOBIN 30 pg (27-31)
[2022-03-01 09:42] LABS: BAND 5 % (0-10); LYMPHOCYTE 18 % (20.0-51.0); MYELOCYTE 1 % (0-0); NEUTROPHILS 74 % (42.0-75.2); PLATELET ESTIMATE NORMAL (NORMAL)
--- NOTE | 2022-03-01 10:09 | NUR ---
Patient's clinical updates and discharge orders faxed to Ari at [facility]. Confirmed that facility does have the patient's medications from previous admission still on hand. Transportation arranged for 1300. Patient and patient's family updated.
--- NOTE | 2022-03-01 12:22 | NUR ---
JUAN JOSÉ met with patient and patient's daughter at bedside. MCR.IM form provided to the patient. Her only concern about today's discharge is that the patient has not had a BM. Patient's RN contacted who made request to ROSALINDA Rodriguez for stool softner. Patient verbalizes that she feels "completely differnt" discharging this time. She goes on to verbalize that she felt she left to early the last admission. Patient's signed original placed in the patient's chart. Copy provided back to the patient. DIscharge plan: [facility] SNF @1300
--- NOTE | 2022-03-01 13:14 | NUR ---
REPORT CALLED TO NURSE AT [facility]. PT DRESSED AND UP TO WHEELCHAIR TO BE TRANSPORTED BY [facility]. ALL QUESTIONS ANSWERED.
== END 2022-03-01 13:15 | DRG 336 ==
LOC: COL.ER 03:35 → SURG 04:56
PROVIDERS: Family Medicine; Nurse Practitioner Family; Physician Assistant; Student in an Organized Health Care Education/Training Program; Surgery; ADMIT Internal Medicine
PROC: 0DN80ZZ Release Small Intestine, Open Approach (ICD-10-PCS; principal; 2022-02-25 10:00)
PROC: 02HV33Z Insertion of Infusion Device into Superior Vena Cava, Percutaneous Approach (ICD-10-PCS; 2022-02-26)
DX: K56.609 Unspecified intestinal obstruction, unspecified as to partial versus complete obstruction (principal); C79.81 Secondary malignant neoplasm of breast; N17.9 Acute kidney failure, unspecified; E87.2 Acidosis; M84.58XA Pathological fracture in neoplastic disease, other specified site, initial encounter for fracture; R78.81 Bacteremia; K91.89 Other postprocedural complications and disorders of digestive system; K91.71 Accidental puncture and laceration of a digestive system organ or structure during a digestive system procedure; K56.7 Ileus, unspecified; B96.20 Unspecified Escherichia coli [E. coli] as the cause of diseases classified elsewhere; B96.89 Other specified bacterial agents as the cause of diseases classified elsewhere; G89.29 Other chronic pain; I12.9 Hypertensive chronic kidney disease with stage 1 through stage 4 chronic kidney disease, or unspecified chronic kidney disease; E11.22 Type 2 diabetes mellitus with diabetic chronic kidney disease; D64.9 Anemia, unspecified; F41.9 Anxiety disorder, unspecified; F32.A Depression, unspecified; E78.5 Hyperlipidemia, unspecified; G47.33 Obstructive sleep apnea (adult) (pediatric); N18.30 Chronic kidney disease, stage 3 unspecified; Y83.8 Other surgical procedures as the cause of abnormal reaction of the patient, or of later complication, without mention of misadventure at the time of the procedure; Y92.238 Other place in hospital as the place of occurrence of the external cause; E87.6 Hypokalemia; Z20.822 Contact with and (suspected) exposure to COVID-19; Z79.82 Long term (current) use of aspirin; Z88.0 Allergy status to penicillin; Z92.3 Personal history of irradiation; Z90.89 Acquired absence of other organs; Z85.830 Personal history of malignant neoplasm of bone; Z88.8 Allergy status to other drugs, medicaments and biological substances; Z88.6 Allergy status to analgesic agent; Z91.030 Bee allergy status; Z91.040 Latex allergy status; Z91.010 Allergy to peanuts
CPT/HCPCS: A4314; A9284; C1751; C9113; J0330; J0690; J0744; J1100; J1650; J2250; J2270; J2370; J2400; J2405; J2704; J2795; J3010; J3480; J7030; J7120; Q9967

== ENCOUNTER 2022-03-11 10:47 | Emergency (ER) | payer MEDICARE, BC ==
[~2022-03-11] VITALS: Ht 152.4 cm; Wt 68.2 kg
[~2022-03-11 10:47] MED LIST changes: +NORCO 325 MG-51 TAB PO; +NOVLOG SQ
[2022-03-11 10:57] VITALS: TEMP 99.1
[2022-03-11 12:39] LABS: COLLECTION METHOD CLEAN CATCH
[2022-03-11 12:47] LABS: MEAN CELL VOLUME 93 fl (80.0-100.0); MEAN CORPUSCULAR HGB CONC 33 g/dl (33.0-37.0); MEAN PLATELET VOLUME 9.7 fl (7.4-10.4); PLATELET COUNT 269 K/mm3 (130-400); REDCELL DISTRIBUTION WIDTH-CV 19.1 % (11.5-14.5)
[2022-03-11 12:50] LABS: HEMATOCRIT 25.9 % (37.0-47.0); HEMOGLOBIN 8.5 g/dl (12.5-16.0); MEAN CORPUSCULAR HEMOGLOBIN 30 pg (27-31)
[2022-03-11 12:52] LABS: SQUAMOUS EPITHELIAL None Seen /hpf (0-10); URINE BACTERIA Rare /hpf (NONE SEEN); URINE RBC 0-2 /hpf (0-2)
[2022-03-11 12:57] LABS: PH 5.5 (5.0-8.5); URINE APPEARANCE Clear (CLEAR/HAZY); URINE COLOR Yellow (YELLOW)
[2022-03-11 12:58] LABS: URINE BLOOD TRACE-LYSED (NEGATIVE); URINE GLUCOSE Negative (NEGATIVE); URINE KETONE Negative (NEGATIVE); URINE NITRATE Negative (NEGATIVE); URINE PROTEIN(semi-quant) TRACE (NEGATIVE); URINE UROBILINOGEN 0.2 E.U/dL (0.2-1.0)
[2022-03-11 13:05] LABS: BILIRUBIN,TOTAL 0.5 mg/dL (0.2-1.2); C-REACTIVE PROTEIN 16.67 mg/dL (0.00-0.50); CREATININE, serum 1.11 mg/dL (0.57-1.11); POTASSIUM 4.2 mmol/L (3.5-4.5); TOTAL PROTEIN 7.2 gm/dL (6.2-8.1)
[2022-03-11 13:11] LABS: TROPONIN-I 0.017 ng/mL (0.00-0.033)
[2022-03-11 13:22] LABS: BAND 1 % (0-10); EOSINOPHIL 1 % (0-4); LYMPHOCYTE 10 % (20.0-51.0); NEUTROPHILS 75 % (42.0-75.2); PLATELET ESTIMATE NORMAL (NORMAL)
[2022-03-11 13:23] LABS: ANISOCYTOSIS 2+; HYPOCHROMIA 1+; POIKILOCYTOSIS 1+
[2022-03-11 13:24] LABS: OVALOCYTES 1+
[2022-03-11 13:25] LABS: SCHISTOCYTES 1+
[2022-03-11 13:26] LABS: BURR CELLS 1+
[2022-03-11] MEDS ORDERED: ELIQUIS 5MG PO ×2 (16:08→16:28)
[2022-03-11 16:30] VITALS: BP 109/71; PULSE 105
[2022-03-12 08:36] LABS: PATHOLOGY DIFF REVIEW OK
== END 2022-03-11 16:30 | disposition home or self-care (01) ==
LOC: COL.ER 10:47
PROVIDERS: Emergency Medicine; Nurse Practitioner
DX: I26.99 Other pulmonary embolism without acute cor pulmonale (principal); R10.31 Right lower quadrant pain
CPT/HCPCS: J2270; J7030; Q9967

== ENCOUNTER → 2022-03-22 | Outpatient (CLI) | payer MEDICARE, BC ==
[~2022-03-22] MED LIST changes: +ELIQUIS 5MG PO
== END ==
LOC: COL.RAD 07:47
DX: C79.81 Secondary malignant neoplasm of breast (principal); G31.9 Degenerative disease of nervous system, unspecified
CPT/HCPCS: Q9967

== ENCOUNTER → 2024-04-06 | Outpatient (CLI) | payer MEDICARE, BC ==
[2024-04-06 09:05] LABS: HEMOGLOBIN 11.1 g/dl (12.5-16.0); MEAN CELL VOLUME 88 fl (80.0-100.0); MEAN CORPUSCULAR HEMOGLOBIN 29 pg (27-31); MEAN CORPUSCULAR HGB CONC 33 g/dl (33.0-37.0); MEAN PLATELET VOLUME 10.3 fl (7.4-10.4); PLATELET COUNT 188 K/mm3 (130-400); RED BLOOD COUNT 3.86 M/mm3 (4.10-5.30)
[2024-04-06 09:07] LABS: HEMATOCRIT 34.1 % (37.0-47.0)
[2024-04-06 09:24] LABS: ALBUMIN 3.7 g/dL (3.4-4.8); BILIRUBIN,TOTAL 0.3 mg/dL (0.2-1.2); CALCIUM 9.6 mg/dL (8.4-10.2); CREATININE, serum 1.37 mg/dL (0.57-1.11); POTASSIUM 4.4 mEq/L (3.5-4.5); TOTAL PROTEIN 7.8 g/dl (6.2-8.1)
[2024-04-06 09:49] LABS: EOSINOPHIL 3 % (0-4); LYMPHOCYTE 27 % (20.0-51.0); NEUTROPHILS 56 % (42.0-75.2); PLATELET ESTIMATE NORMAL (NORMAL)
[2024-04-08 09:13] LABS: CANCER ANTIGEN CA 27.29 20.3 U/mL (0.0-38.6)
== END ==
LOC: COL.LAB
PROVIDERS: Internal Medicine
DX: C50.212 Malignant neoplasm of upper-inner quadrant of left female breast (principal)